=== PATIENT | male | born 1965 | race Caucasian/White ===

== ENCOUNTER 2019-09-26 20:55 | Emergency (ER) | payer OTHER ==
--- NOTE | 2019-09-26 22:28 | EDM.PDOC ---
ED HPI GENERAL MEDICAL PROBLEM - General Chief Complaint: Chest Pain Stated Complaint: [facility] Time Seen by Provider: 09/26/19 22:07 Source of Information: Reports: Patient, Other (Coworker) History Limitations: Reports: No Limitations - History of Present Illness INITIAL COMMENTS - FREE TEXT/NARRATIVE: Mr. Kim is a very pleasant 54-year-old man with a past medical history significant for allergic rhinitis, hypertension, untreated GERD, a Schatzki ring status post dilatation, peptic ulcer disease, and prediabetes, who presents to the ED by EMS, stating that he was in his usual state of health until around 10:30 this morning, when he woke up (he works nights) with nausea and vomiting. He felt diaphoretic after he vomited. He went back to bed, then woke up again around 15:30 to 16:00, this time with a cough, nasal congestion, and lightheadedness. Thinking it was his allergic rhinitis, he took a Claritin- D. Around 17:30, he developed some left-sided chest tightness. He describes the sensation as a pressure or "itchy" sensation, and he points with one finger to his upper left midclavicular chest. He states that the pain comes and goes, and is particularly worse when he forcefully exhales. He states that his coughing makes him feel dyspneic. He denies a sense of impending doom. No recent fever, constipation, diarrhea, or urinary symptoms. No recent palpitations, abdominal pain, urinary symptoms, recent weight gain or weight loss, recent bloody bowel movements or black bowel movements, recent joint aches , headaches, or rashes. The patient denies prior similar symptoms. Here in the ED, the patient is found to be hemodynamically stable, afebrile, saturating 97% on room air. The patient's PCP is in [place]. He did not receive an influenza vaccine this season, but agreed to receive one here today. Treatments FURNACE MAINTENANCE: Reports: Aspirin, IV/IO, Nitroglycerin Mid-Sternal Chest Pain Score (Numeric/FACES): 2 - Related Data Allergies Allergy/AdvReac Type Severity Reaction Status Date / Time No Known Allergies Allergy Verified 09/26/19 20:59 Home Meds: Home Meds Losartan/Hydrochlorothiazide [Losartan-HCTZ 100-25 MG] 1 tab PO DAILY 09/26/19 [ History] Oseltamivir [Tamiflu] 1 cap PO Q12H #9 cap 09/26/19 [Rx] Tamsulosin HCl [Flomax] 1 cap PO DAILY 09/26/19 [History] amLODIPine Besylate [Amlodipine Besylate] 1 tab PO DAILY 09/26/19 [History] Past Medical History HEENT History: Reports: Allergic Rhinitis Cardiovascular History: Reports: Hypertension Gastrointestinal History: Reports: GERD (untreated), PUD, Other (See Below) ( Schatzki ring, status post dilatation) Genitourinary History: Reports: BPH Endocrine/Metabolic History: Reports: Other (See Below) (Prediabetes) - Past Surgical History HEENT Surgical History: Reports: Oral Surgery (wisdo teeth extraction), Tonsillectomy GI Surgical History: Reports: Appendectomy, Cholecystectomy (2008 or 2009), Colonoscopy (x 1), EGD (x 1), Esophageal Dilatation Male Surgical History: Reports: Other (See Below) (Cystoscopy x 1) Social & Family History - Tobacco Use Smoking Status *Q: Never Smoker Tobacco Use Within Last Twelve Months: Smokeless Tobacco (Chews 1/2 can/day) - Alcohol Use Alcohol Use History: Yes Alcohol Use Frequency: Socially (occasionally to excess) - Recreational Drug Use Recreational Drug Use: Yes Drug Use in Last 12 Months: No Recreational Drug Type: Reports: Marijuana/Hashish (last smoked in HS) - Living Situation & Occupation Living situation: Reports: , with Spouse, with Family (1 daughter, 1 granddaughter) 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 ED EXAM, GENERAL - Physical Exam Exam: See Below Exam Limited By: No Limitations General Appearance: Alert, WD/WN, No Apparent Distress Eye Exam: Bilateral Eye: EOMI, Normal Inspection Ears: Normal External Exam, Normal Canal, Hearing Grossly Normal, Normal TMs Nose: Normal Inspection, Normal Mucosa, No Blood Throat/Mouth: Normal Inspection, Normal Lips, Normal Teeth, Normal Gums, Normal Oropharynx, Normal Voice, No Airway Compromise Head: Atraumatic, Normocephalic Neck: Normal Inspection, Supple, Non-Tender, Full Range of Motion. No: Lymphadenopathy (L), Lymphadenopathy (R) Respiratory/Chest: No Respiratory Distress, Lungs Clear, Normal Breath Sounds, No Accessory Muscle Use. No: Decreased Breath Sounds, Crackles, Rhonchi, Wheezing, Stridor, Prolonged Expiration Cardiovascular: Normal Peripheral Pulses, Regular Rate, Rhythm, No Edema, No Gallop, No JVD, No Murmur, No Rub Peripheral Pulses: 4+: Radial (L), Radial (R) GI/Abdominal: Normal Bowel Sounds, Soft, Non-Tender, No Organomegaly, No Distention, No Abnormal Bruit, No Mass (Male) Exam: Deferred Rectal (Males) Exam: Deferred Back Exam: Normal Inspection, Full Range of Motion, NT Extremities: Normal Inspection, Normal Range of Motion, No Pedal Edema, Normal Capillary Refill Neurological: Alert, Oriented, Normal Cognition, No Motor/Sensory Deficits Psychiatric: Normal Affect Skin Exam: Warm, Dry, Intact, Normal Color, No Rash EKG INTERPRETATION EKG Date: 09/26/19 Time: 20:57 Rhythm: NSR (with several PACs) Rate (Beats/Min): 81 Jones: Normal P-Wave: Present QRS: Normal ST-T: Normal QT: Normal Comparison: NA - No Prior EKG Course - Vital Signs Last Recorded V/S: Last Vital Signs Temp 37.1 C 09/26/19 21:00 Pulse 84 09/26/19 21:00 Resp 15 09/26/19 21:00 BP 111/68 09/26/19 21:00 Pulse Ox 97 09/26/19 21:00 - Orders/Labs/Meds Orders: Active Orders 24 hr Category Date Time Status EKG Documentation Completion [RC] STAT Care 09/26/19 21:47 Active Influenza Vaccine Charge [RC] .DISCHARGE Care 09/27/19 00:10 Active Chest 2V [CR] Stat Exams 09/26/19 22:22 Taken CORONAVIRUS (COVID-19) PCR [MREF] Stat Lab 09/26/19 23:09 Received Isolation [COMM] Routine Oth 09/26/19 22:52 Ordered Labs: Laboratory Tests 09/26/19 09/26/19 09/26/19 Range/Units 22:41 22:41 22:41 WBC 8.87 (4.23-9.07) K/mm3 RBC 4.82 (4.63-6.08) M/mm3 Hgb 14.9 (13.7-17.5) gm/dl Hct 43.5 (40.1-51.0) % MCV 90.2 (79.0-92.2) fl MCH 30.9 (25.7-32.2) pg MCHC 34.3 (32.2-35.5) g/dl RDW Std Deviation 40.7 (35.1-43.9) fL Plt Count 205 (163-337) K/mm3 MPV 9.7 (9.4-12.3) fl Neutrophils % (Manual) 39 L (40-60) % Band Neutrophils % 0 (0-10) % Lymphocytes % (Manual) 41 H (20-40) % Atypical Lymphs % 6 % Monocytes % (Manual) 11 H (2-10) % Eosinophils % (Manual) 3 (0.8-7.0) % Basophils % (Manual) 0 L (0.2-1.2) Platelet Estimate Adequate Plt Morphology Comment Normal RBC Morph Comment Normal PT 10.9 (9.7-12.0) SECONDS INR 1.00 APTT 28 (22-31) SECONDS D-Dimer, Quantitative < 0.19 L (0.19-0.50) mg/L Sodium 141 (136-145) mEq/L Potassium 3.7 (3.5-5.1) mEq/L Chloride 105 (98-107) mEq/L Carbon Dioxide 24 (21-32) mEq/L Anion Gap 15.7 H (5-15) BUN 17 (7-18) mg/dL Creatinine 1.3 (0.7-1.3) mg/dL Est Cr Clr Drug Dosing 71.30 mL/min Estimated GFR (MDRD) 58 (>60) mL/min BUN/Creatinine Ratio 13.1 L (14-18) Glucose 106 (74-106) mg/dL Calcium 9.2 (8.5-10.1) mg/dL Total Bilirubin 0.9 (0.2-1.0) mg/dL AST 19 (15-37) U/L ALT 38 (16-63) U/L Alkaline Phosphatase 74 (46-116) U/L Troponin I < 0.017 (0.00-0.056) ng/mL NT-Pro-B Natriuret Pep (0-125) pg/mL Total Protein 7.3 (6.4-8.2) g/dl Albumin 4.1 (3.4-5.0) g/dl Globulin 3.2 gm/dL Albumin/Globulin Ratio 1.3 (1-2) 09/26/19 Range/Units 22:41 WBC (4.23-9.07) K/mm3 RBC (4.63-6.08) M/mm3 Hgb (13.7-17.5) gm/dl Hct (40.1-51.0) % MCV (79.0-92.2) fl MCH (25.7-32.2) pg MCHC (32.2-35.5) g/dl RDW Std Deviation (35.1-43.9) fL Plt Count (163-337) K/mm3 MPV (9.4-12.3) fl Neutrophils % (Manual) (40-60) % Band Neutrophils % (0-10) % Lymphocytes % (Manual) (20-40) % Atypical Lymphs % % Monocytes % (Manual) (2-10) % Eosinophils % (Manual) (0.8-7.0) % Basophils % (Manual) (0.2-1.2) Platelet Estimate Plt Morphology Comment RBC Morph Comment PT (9.7-12.0) SECONDS INR APTT (22-31) SECONDS D-Dimer, Quantitative (0.19-0.50) mg/L Sodium (136-145) mEq/L Potassium (3.5-5.1) mEq/L Chloride (98-107) mEq/L Carbon Dioxide (21-32) mEq/L Anion Gap (5-15) BUN (7-18) mg/dL Creatinine (0.7-1.3) mg/dL Est Cr Clr Drug Dosing mL/min Estimated GFR (MDRD) (>60) mL/min BUN/Creatinine Ratio (14-18) Glucose (74-106) mg/dL Calcium (8.5-10.1) mg/dL Total Bilirubin (0.2-1.0) mg/dL AST (15-37) U/L ALT (16-63) U/L Alkaline Phosphatase (46-116) U/L Troponin I (0.00-0.056) ng/mL NT-Pro-B Natriuret Pep 12 (0-125) pg/mL Total Protein (6.4-8.2) g/dl Albumin (3.4-5.0) g/dl Globulin gm/dL Albumin/Globulin Ratio (1-2) Meds: Medications Discontinued Medications Generic Name Dose Route Start Last Admin Trade Name Hernan PRN Reason Stop Dose Admin Influenza Virus Vaccine 60 mcg 09/27/19 00:30 09/27/19 00:22 Fluzone Quad [id number] Syringe IM 09/27/19 00:31 60 mcg .ONCE ONE Administration Oseltamivir Phosphate 75 mg 09/26/19 23:54 09/27/19 00:04 Tamiflu PO 09/26/19 23:55 75 mg ONETIME ONE Administration - Re-Assessments/Exams Free Text/Narrative Re-Assessment/Exam: 09/26/19 22:24 The patient is likely suffering from a viral URI, however, I have ordered a work -up to evaluate for pneumonia. His left-sided chest pain is almost certainly due to a muscle spasm caused by his coughing, however, I have also ordered a troponin and a D-dimer. His ECG, ordered at triage, is unremarkable. While the patient is at low risk for having COVID-19, the patient does have the symptoms of cough and shortness of breath, therefore it is reasonable to test. Results won't be available until tomorrow. We will also test for influenza. 09/26/19 23:08 Two-view chest radiograph appears to be grossly normal. The cardiac silhouette is within normal limits. No pulmonary vascular congestion. No pleural effusions. No focal infiltrate. No pneumothorax. Formal read per the Radiologist pending. 09/26/19 23:45 The patient CBC is unremarkable. His CMP is remarkable for an anion gap slightly elevated at 15.7, but with a bicarbonate normal at 24. The remainder of his CMP is unremarkable. His troponin is undetectably low. His BNP is within normal limits at 12. His D-dimer is undetectably low. His coags are within normal limits. His influenza swab returned negative. 09/26/19 23:54 Test results discussed with the patient. As above, today's work-up is entirely negative. I explained that despite his negative influenza swab, it is still possible that he has influenza, and if so, he is within the timeframe that treatment with Tamiflu would still be worthwhile. The patient agreed. The patient declined an offer for a note for work. Departure - Departure Time of Disposition: 23:55 Disposition: Home, Self-Care 01 Condition: Good Clinical Impression: Influenza - Discharge Information *PRESCRIPTION DRUG MONITORING PROGRAM REVIEWED*: Not Applicable *COPY OF PRESCRIPTION DRUG MONITORING REPORT IN PATIENT KATHYA: Not Applicable Prescriptions: Oseltamivir [Tamiflu] 1 cap PO Q12H #9 cap Instructions: Influenza, Adult, [id number] Referrals: PCP,Not In Area [Primary Care Provider] - Forms: ED Department Discharge Additional Instructions: You were seen in the emergency room for nausea, vomiting, a cough, lightheadedness, nasal congestion, and chest tightness. Work-up in the ER included blood work, an influenza swab, a COVID-19 test, a chest x-ray, and an ECG. Your entire work-up was unremarkable. You do not have pneumonia. You have not suffered a heart attack. You do not have a blood clot in your lungs. You are not suffering from congestive heart failure. Your influenza test returned negative, however, as discussed, that does not necessarily mean that you do not have influenza. You still might. You have been started on the anti-influenza medicine Tamiflu, and a prescription for Tamiflu has been sent to the [facility], located just south and across the [address] from [facility]. The pharmacy will be open between noon and 4:00 PM tomorrow, 09/27/2019. Take 1 capsule of Tamiflu every 12 hours, as prescribed. Finish the entire prescription unless told otherwise by a doctor. The test for COVID-19 is a send-out test, and results will not be available until tomorrow. You will be notified if it returns positive. Get plenty of rest and stay adequately hydrated. Take [id number] Tylenol or ibuprofen as needed for discomfort. We recommend that you avoid [id number] cough and cold remedies, as they have been shown to be of no benefit, but do have side effects, such as an upset stomach. If your symptoms persist, please follow-up with your PCP. If they worsen, please do not hesitate to return to the ER for reevaluation. *You were given an influenza vaccine during your ER visit.* Sepsis Event Note - Evaluation Sepsis Screening Result: No Definite Risk - Focused Exam Vital Signs: Vital Signs Temp Pulse Resp BP Pulse Ox 09/26/19 21:00 37.1 C 84 15 111/68 97 Date Exam was Performed: 09/27/19 Time Exam was Performed: 01:29 - My Orders Last 24 Hours: My Active Orders 09/26/19 21:47 EKG Documentation Completion [RC] STAT 09/26/19 22:22 Chest 2V [CR] Stat 09/26/19 22:52 Isolation [COMM] Routine 09/26/19 23:09 CORONAVIRUS (COVID-19) PCR [MREF] Stat 09/27/19 00:10 Influenza Vaccine Charge [RC] .DISCHARGE - Assessment/Plan Last 24 Hours: My Active Orders 09/26/19 21:47 EKG Documentation Completion [RC] STAT 09/26/19 22:22 Chest 2V [CR] Stat 09/26/19 22:52 Isolation [COMM] Routine 09/26/19 23:09 CORONAVIRUS (COVID-19) PCR [MREF] Stat 09/27/19 00:10 Influenza Vaccine Charge [RC] .DISCHARGE
[2019-09-26] MEDS ORDERED: Oseltamivir 75 MG Cap PO ONE (23:54)
[2019-09-27] MEDS ORDERED: FLU Vacc QS2019-20(6MOS+)/PF 60 MCG/0.5 ML SYRINGE IM ONE (00:30)
--- NOTE | 2019-09-27 07:56 | CR ---
Chest: 2 views of the chest were obtained. Comparison: No prior chest imaging is available. Heart size and mediastinum are normal. Lungs are clear with no acute parenchymal change. Bony structures appear within normal limits for the patient's age. Surgical clips are seen from prior cholecystectomy. Impression: 1. Nothing acute is appreciated on 2 view chest x-ray. Diagnostic code #2 Study was dictated in MDT
== END 2019-09-27 00:30 | disposition home or self-care (01) ==
LOC: JD.ED 20:55
DX: J11.1 Influenza due to unidentified influenza virus with other respiratory manifestations (principal); Z23 Encounter for immunization; I10 Essential (primary) hypertension; Z79.899 Other long term (current) drug therapy; Z20.828 Contact with and (suspected) exposure to other viral communicable diseases
CPT/HCPCS: 36415; 71046; 80053; 83880; 84484; 85007; 85027; 85379; 85610; 85730; 87635; 87804; 90471; 90686; 93005; 99285; A9270; 93010; 99283; G0008; U0001; U0002